=== PATIENT | male | born 1935 | race Caucasian/White ===

== ENCOUNTER → 2016-05-08 | Outpatient (CLI) | payer MEDICARE, OTHER | END | disposition home or self-care (01) | LOC: LAB 07:22 | DX: C34.11 Malignant neoplasm of upper lobe, right bronchus or lung (principal) | CPT/HCPCS: 36415; 82565; 84520 ==

== ENCOUNTER 2016-06-05 10:42 | Emergency (ER) | payer MEDICARE, OTHER ==
[~2016-06-05] VITALS: Ht 180.3 cm; Wt 86.2 kg
[2016-06-05] MEDS ORDERED: methylPREDNISolone SOD SUCC 125 MG/2 ML VL IV ONE (11:00)
[2016-06-05 11:21] LABS: Basophils # (auto) 0 uL; Basophils % (auto) 0.3 % (0.0-2.0); Eosinophils # (auto) 0.1 uL; Eosinophils % (auto) 1.6 % (0.0-7.0); Hematocrit 52.5 % (41.0-53.0); Hemoglobin 16.9 g/dL (13.5-17.5); Lymphocytes # (auto) 1.4 uL; Lymphocytes % (auto) 17.2 % (10.0-50.0); Mean Corpuscular Hemoglobin 31.1 pg (28.0-32.0); Mean Corpuscular Hgb Conc. 32.2 g/dL (32.0-36.0); Mean Corpuscular Volume 96.6 fL (80.0-100.0); Mean Platelet Volume 8.4 fL (7.4-10.4); Monocytes # (auto) 0.3 uL; Monocytes % (auto) 3.1 % (0.0-12.0); Neutrophils # (auto) 6.5 uL; Neutrophils % (auto) 77.8 % (37.0-80.0); Platelet Count (auto) 252 10^3/uL (140-450); Red Cell Distribution Width 13.7 % (11.6-16.0); White Blood Cell 8.3 10^3/uL (4.4-10.8)
[2016-06-05 11:46] LABS: Albumin 3.7 g/dL (3.4-5.0); BUN/Creatinine Ratio 17.1; Calcium 9.3 mg/dL (8.5-10.1); Potassium 3.4 mmol/L (3.5-5.1)
[2016-06-05 11:48] LABS: Bilirubin, Total 0.9 mg/dL (0.2-1.0); Total Protein 7.2 g/dL (6.4-8.2)
[2016-06-05 12:02] LABS: B-Type Natriuretic Peptide 108.14 pg/mL (0-100); Temperature: 23.1 C (20.0-25.0)
[2016-06-05] MEDS ORDERED: ASPirin 81 mg TAB PO ONE (13:30)
[2016-06-05] MEDS ORDERED: MORPHINE SULFATE 4 MG/ML SYRG IV ONE (13:30)
[2016-06-05] MEDS ORDERED: ONDANSETRON HCL 4 MG/2 ML VIAL IV ONE (13:30)
[2016-06-05] MEDS ORDERED: LORazepam 2MG/ML-1ML VIAL IV ONE (14:00)
[2016-06-05] MEDS ORDERED: NITROGLYCERIN 2% OINT 1GM PKG TD ONE (18:45)
[2016-06-06 00:36] LABS: Albumin 3.3 g/dL (3.4-5.0); BUN/Creatinine Ratio 18.3; Basophils # (auto) 0.1 uL; Basophils % (auto) 1.1 % (0.0-2.0); Calcium 8.8 mg/dL (8.5-10.1); Eosinophils # (auto) 0 uL; Hematocrit 47.2 % (41.0-53.0); Hemoglobin 15.2 g/dL (13.5-17.5); Lymphocytes # (auto) 0.6 uL; Lymphocytes % (auto) 5.1 % (10.0-50.0); Mean Corpuscular Hemoglobin 31.3 pg (28.0-32.0); Mean Corpuscular Hgb Conc. 32.3 g/dL (32.0-36.0); Mean Corpuscular Volume 97.1 fL (80.0-100.0); Mean Platelet Volume 8.4 fL (7.4-10.4); Monocytes # (auto) 0.3 uL; Monocytes % (auto) 2.5 % (0.0-12.0); Neutrophils # (auto) 10.2 uL; Neutrophils % (auto) 91.3 % (37.0-80.0); Platelet Count (auto) 210 10^3/uL (140-450); Potassium 4.8 mmol/L (3.5-5.1); Red Cell Distribution Width 12.7 % (11.6-16.0); SUSPECT VIEW TRANSMISSION; White Blood Cell 11.2 10^3/uL (4.4-10.8)
[2016-06-06 00:38] LABS: Bilirubin, Total 0.5 mg/dL (0.2-1.0); Total Protein 6.8 g/dL (6.4-8.2)
[2016-06-06 03:02] VITALS: BP 147/100
== END 2016-06-06 03:13 | disposition home or self-care (01) ==
LOC: EDBD 10:42 → ER 10:42
DX: J44.1 Chronic obstructive pulmonary disease with (acute) exacerbation (principal); I71.9 Aortic aneurysm of unspecified site, without rupture; I48.92 Unspecified atrial flutter; F17.210 Nicotine dependence, cigarettes, uncomplicated; R42 Dizziness and giddiness; I48.91 Unspecified atrial fibrillation; I25.810 Atherosclerosis of coronary artery bypass graft(s) without angina pectoris
CPT/HCPCS: 36415; 36600; 71010; 74176; 80053; 80320; 82805; 83605; 83735; 83880; 84484; 85025; 87040; 93005; 94761; 96374; 96375; 99285; J2060; J2270; J2405; J2930

== ENCOUNTER → 2016-06-11 | Outpatient (CLI) | payer MEDICARE, OTHER ==
[2016-06-11 12:45] LABS: Albumin 3.1 g/dL (3.4-5.0); Bilirubin, Total 0.6 mg/dL (0.2-1.0); Calcium 9.1 mg/dL (8.5-10.1); Total Protein 6.5 g/dL (6.4-8.2)
== END | disposition home or self-care (01) ==
LOC: LAB 11:14
PROVIDERS: ATTEND Internal Medicine Cardiovascular Disease
DX: I50.22 Chronic systolic (congestive) heart failure (principal); I35.9 Nonrheumatic aortic valve disorder, unspecified
CPT/HCPCS: 36415; 80053

== ENCOUNTER → 2016-07-10 | Outpatient (CLI) | payer MEDICARE, OTHER ==
[2016-07-10 15:10] LABS: Basophils # (auto) 0 uL; Basophils % (auto) 0.3 % (0.0-2.0); Eosinophils # (auto) 0.2 uL; Eosinophils % (auto) 2.5 % (0.0-7.0); Hematocrit 39.2 % (41.0-53.0); Hemoglobin 12.7 g/dL (13.5-17.5); Lymphocytes # (auto) 1.6 uL; Lymphocytes % (auto) 20.9 % (10.0-50.0); Mean Corpuscular Hemoglobin 31.2 pg (28.0-32.0); Mean Corpuscular Hgb Conc. 32.5 g/dL (32.0-36.0); Mean Platelet Volume 9.4 fL (7.4-10.4); Monocytes # (auto) 0.8 uL; Monocytes % (auto) 11.2 % (0.0-12.0); Neutrophils # (auto) 4.9 uL; Neutrophils % (auto) 65.1 % (37.0-80.0); Platelet Count (auto) 205 10^3/uL (140-450); Red Cell Distribution Width 14.8 % (11.6-16.0); White Blood Cell 7.5 10^3/uL (4.4-10.8)
[2016-07-10 15:12] LABS: Urine Bilirubin Negative (Negative); Urine Blood Negative /uL (Negative); Urine Color Yellow (Yellow); Urine Glucose Normal (Normal); Urine Hyaline Cast FEW /lpf (0 - 2); Urine Ketone Negative (Negative); Urine Mucus FEW (None Seen); Urine Nitrite Negative (Negative); Urine RBC 3 /hpf (0 - 3); Urine Urobilinogen Normal (Negative)
[2016-07-10 15:43] LABS: Albumin 3.9 g/dL (3.4-5.0); BUN/Creatinine Ratio 15.4; Bilirubin, Total 0.7 mg/dL (0.2-1.0); Calcium 9.8 mg/dL (8.5-10.1); Potassium 4.3 mmol/L (3.5-5.1); Total Protein 7.1 g/dL (6.4-8.2)
== END | disposition home or self-care (01) ==
LOC: LAB 13:55
DX: E78.5 Hyperlipidemia, unspecified (principal)
CPT/HCPCS: 36415; 80053; 80061; 81001; 84443; 85025; 85652

== ENCOUNTER → 2016-08-01 | Outpatient (CLI) | payer MEDICARE, OTHER ==
[2016-08-01 15:30] LABS: Temperature: 22.9 C (20.0-25.0)
== END | disposition home or self-care (01) ==
LOC: LAB 14:38
DX: I10 Essential (primary) hypertension (principal); D63.8 Anemia in other chronic diseases classified elsewhere
CPT/HCPCS: 82607; 82746; 83540; 83550

== ENCOUNTER → 2016-08-18 | Outpatient (CLI) | payer MEDICARE, OTHER ==
[2016-08-18 09:43] LABS: Basophils # (auto) 0 uL; Basophils % (auto) 0.2 % (0.0-2.0); Eosinophils # (auto) 0.2 uL; Eosinophils % (auto) 2.5 % (0.0-7.0); Hematocrit 39.5 % (41.0-53.0); Hemoglobin 12.9 g/dL (13.5-17.5); Lymphocytes # (auto) 1.1 uL; Lymphocytes % (auto) 16.6 % (10.0-50.0); Mean Corpuscular Hemoglobin 30.5 pg (28.0-32.0); Mean Corpuscular Hgb Conc. 32.5 g/dL (32.0-36.0); Mean Corpuscular Volume 93.8 fL (80.0-100.0); Mean Platelet Volume 9.1 fL (7.4-10.4); Monocytes # (auto) 0.8 uL; Monocytes % (auto) 13.2 % (0.0-12.0); Neutrophils # (auto) 4.3 uL; Neutrophils % (auto) 67.5 % (37.0-80.0); Platelet Count (auto) 186 10^3/uL (140-450); Red Cell Distribution Width 14.8 % (11.6-16.0); White Blood Cell 6.4 10^3/uL (4.4-10.8)
[2016-08-18 10:06] LABS: Albumin 3.6 g/dL (3.4-5.0); BUN/Creatinine Ratio 12.7; Bilirubin, Total 0.9 mg/dL (0.2-1.0); Potassium 4.6 mmol/L (3.5-5.1)
== END | disposition home or self-care (01) ==
LOC: LAB 09:00
PROVIDERS: ATTEND Internal Medicine
DX: C34.91 Malignant neoplasm of unspecified part of right bronchus or lung (principal)
CPT/HCPCS: 36415; 80053; 83615; 85025

== ENCOUNTER → 2016-10-21 | Outpatient (CLI) | payer MEDICARE, OTHER ==
[2016-10-21 09:16] LABS: Basophils # (auto) 0 uL; Basophils % (auto) 0.4 % (0.0-2.0); CONDITION Y; Eosinophils # (auto) 0.3 uL; Eosinophils % (auto) 4.8 % (0.0-7.0); Hematocrit 43.1 % (41.0-53.0); Hemoglobin 14.3 g/dL (13.5-17.5); Lymphocytes # (auto) 1.3 uL; Lymphocytes % (auto) 19.6 % (10.0-50.0); Mean Corpuscular Hemoglobin 29.6 pg (28.0-32.0); Mean Corpuscular Hgb Conc. 33.2 g/dL (32.0-36.0); Mean Corpuscular Volume 89.3 fL (80.0-100.0); Monocytes % (auto) 14.5 % (0.0-12.0); Neutrophils # (auto) 4.1 uL; Neutrophils % (auto) 60.7 % (37.0-80.0); Platelet Count (auto) 196 10^3/uL (140-450); Red Cell Distribution Width 16.1 % (11.6-16.0); White Blood Cell 6.8 10^3/uL (4.4-10.8)
[2016-10-21 09:22] LABS: Urine Bilirubin Negative (Negative); Urine Blood Negative /uL (Negative); Urine Color Yellow (Yellow); Urine Glucose Normal (Normal); Urine Ketone Negative (Negative); Urine Nitrite Negative (Negative); Urine RBC 2 /hpf (0 - 3); Urine pH 6.5 (5.0-8.0)
[2016-10-21 09:38] LABS: Albumin 3.8 g/dL (3.4-5.0); BUN/Creatinine Ratio 21.2; Bilirubin, Total 1.4 mg/dL (0.2-1.0); Calcium 10.1 mg/dL (8.5-10.1); Potassium 3.9 mmol/L (3.5-5.1); Total Protein 7.4 g/dL (6.4-8.2)
== END | disposition home or self-care (01) ==
LOC: LAB 08:58
PROVIDERS: ATTEND Internal Medicine
DX: I10 Essential (primary) hypertension (principal); D63.8 Anemia in other chronic diseases classified elsewhere
CPT/HCPCS: 36415; 80053; 80061; 81001; 84443; 85025

== ENCOUNTER → 2016-12-16 | Outpatient (CLI) | payer MEDICARE, OTHER ==
[2016-12-16 10:24] LABS: Basophils # (auto) 0 uL; Basophils % (auto) 0.2 % (0.0-2.0); CONDITION Y; Eosinophils # (auto) 0.2 uL; Hematocrit 40.5 % (41.0-53.0); Hemoglobin 13.2 g/dL (13.5-17.5); Lymphocytes # (auto) 1.2 uL; Lymphocytes % (auto) 20.9 % (10.0-50.0); Mean Corpuscular Hgb Conc. 32.7 g/dL (32.0-36.0); Mean Corpuscular Volume 94.8 fL (80.0-100.0); Mean Platelet Volume 8.6 fL (7.4-10.4); Monocytes # (auto) 0.7 uL; Monocytes % (auto) 12.2 % (0.0-12.0); Neutrophils # (auto) 3.5 uL; Neutrophils % (auto) 62.7 % (37.0-80.0); Platelet Count (auto) 170 10^3/uL (140-450); Red Cell Distribution Width 18.3 % (11.6-16.0); White Blood Cell 5.6 10^3/uL (4.4-10.8)
[2016-12-16 10:54] LABS: Albumin 3.7 g/dL (3.4-5.0); BUN/Creatinine Ratio 15.5; Calcium 9.7 mg/dL (8.5-10.1); Potassium 4.7 mmol/L (3.5-5.1)
[2016-12-16 10:57] LABS: Bilirubin, Total 0.8 mg/dL (0.2-1.0); Total Protein 7.2 g/dL (6.4-8.2)
== END | disposition home or self-care (01) ==
LOC: LAB 09:43
PROVIDERS: ATTEND Internal Medicine
DX: C34.91 Malignant neoplasm of unspecified part of right bronchus or lung (principal); J44.9 Chronic obstructive pulmonary disease, unspecified; I48.91 Unspecified atrial fibrillation; I25.10 Atherosclerotic heart disease of native coronary artery without angina pectoris
CPT/HCPCS: 36415; 80053; 83615; 85025

== ENCOUNTER → 2017-03-11 | Outpatient (CLI) | payer MEDICARE, OTHER ==
[2017-03-11 11:26] LABS: Basophils # (auto) 0 uL; Basophils % (auto) 0.4 % (0.0-2.0); Eosinophils # (auto) 0.2 uL; Eosinophils % (auto) 2.8 % (0.0-7.0); Hematocrit 40.6 % (41.0-53.0); Hemoglobin 13.8 g/dL (13.5-17.5); Lymphocytes # (auto) 1.3 uL; Lymphocytes % (auto) 22.7 % (10.0-50.0); Mean Corpuscular Volume 97.1 fL (80.0-100.0); Monocytes # (auto) 0.9 uL; Monocytes % (auto) 15.2 % (0.0-12.0); Neutrophils # (auto) 3.4 uL; Neutrophils % (auto) 58.9 % (37.0-80.0); Platelet Count (auto) 120 10^3/uL (140-450); Red Blood Cells 4.18 10^6/uL (4.5-5.90); Red Cell Distribution Width 14.4 % (11.8-14.3); White Blood Cell 5.7 10^3/uL (4.4-10.8)
[2017-03-11 12:15] LABS: Albumin 3.7 g/dL (3.4-5.0); BUN/Creatinine Ratio 16.3; Bilirubin, Total 1.1 mg/dL (0.2-1.0); Calcium 9.6 mg/dL (8.5-10.1); Potassium 3.7 mmol/L (3.5-5.1); Total Protein 6.8 g/dL (6.4-8.2)
== END | disposition home or self-care (01) ==
LOC: LAB 10:47
PROVIDERS: ATTEND Internal Medicine
DX: C34.91 Malignant neoplasm of unspecified part of right bronchus or lung (principal); J44.9 Chronic obstructive pulmonary disease, unspecified
CPT/HCPCS: 36415; 80053; 83615; 85025

== ENCOUNTER → 2017-04-23 | Outpatient (CLI) | payer MEDICARE, OTHER ==
[2017-04-23 10:19] LABS: Albumin 3.5 g/dL (3.4-5.0); BUN/Creatinine Ratio 15.2; Bilirubin, Total 2.2 mg/dL (0.2-1.0); Calcium 9.4 mg/dL (8.5-10.1); Potassium 4.2 mmol/L (3.5-5.1); Total Protein 6.8 g/dL (6.4-8.2)
== END | disposition home or self-care (01) ==
LOC: LAB 09:25
PROVIDERS: ATTEND Internal Medicine
DX: J44.9 Chronic obstructive pulmonary disease, unspecified (principal); E78.5 Hyperlipidemia, unspecified
CPT/HCPCS: 36415; 80053; 84439; 84443

== ENCOUNTER 2017-05-04 15:54 | Inpatient (IN) | payer MEDICARE, OTHER ==
[~2017-05-04] VITALS: Ht 185.4 cm; Wt 105.2 kg
[2017-05-04 18:12] LABS: Basophils # (auto) 0.1 uL; Basophils % (auto) 0.9 % (0.0-2.0); Eosinophils # (auto) 0 uL; Eosinophils % (auto) 0.1 % (0.0-7.0); Hematocrit 43.6 % (41.0-53.0); Hemoglobin 14.6 g/dL (13.5-17.5); Lymphocytes # (auto) 0.3 uL; Lymphocytes % (auto) 3.8 % (10.0-50.0); Mean Corpuscular Hemoglobin 33.3 pg (28.0-32.0); Mean Corpuscular Hgb Conc. 33.5 g/dL (32.0-36.0); Mean Corpuscular Volume 99.4 fL (80.0-100.0); Monocytes # (auto) 1.1 uL; Neutrophils # (auto) 7.6 uL; Neutrophils % (auto) 83.2 % (37.0-80.0); Nucleated Red Blood Cells % 0.1 %; Platelet Count (auto) 134 10^3/uL (140-450); Red Blood Cells 4.39 10^6/uL (4.5-5.90); Red Cell Distribution Width 17.4 % (11.8-14.3); White Blood Cell 9.2 10^3/uL (4.4-10.8)
[2017-05-04 18:28] LABS: Albumin 3.3 g/dL (3.4-5.0); BUN/Creatinine Ratio 22.1; Calcium 8.7 mg/dL (8.5-10.1); Potassium 3.4 mmol/L (3.5-5.1)
[2017-05-04 18:33] LABS: Bilirubin, Total 2.9 mg/dL (0.2-1.0); Total Protein 6.5 g/dL (6.4-8.2)
[2017-05-04] MEDS ORDERED: FUROSEMIDE 40 MG/4 ML VIAL IV ONE (20:45)
[2017-05-05] MEDS ORDERED: FUROSEMIDE INJECTION 10 ML ONE (00:32)
[2017-05-05] MEDS ORDERED: POTASSIUM CHL 20 Meq TABLET PO ONE (00:45)
[2017-05-05] MEDS ORDERED: MORPHINE SULFATE 4 MG/ML SYR/VIAL IV PRN (00:45)
[2017-05-05] MEDS ORDERED: ACETAMINOPHEN 500 MG TAB PO PRN (00:45)
[2017-05-05] MEDS ORDERED: FUROSEMIDE 20 MG/2 ML VIAL IV ONE (00:45)
[2017-05-05] MEDS ORDERED: NITROGLYCERIN 0.4 MG SL TAB SL PRN (00:45)
[2017-05-05] MEDS ORDERED: HYDROcodone-ACET 5/325MG TAB PO PRN (00:45)
[2017-05-05] MEDS ORDERED: ONDANSETRON HCL 4 MG/2 ML VIAL IV PRN (00:45)
[2017-05-05] MEDS: ENOXAPARIN SOD 80 MG/0.8ML SYRINGE SC SCH ×2 (01:24→12:53)
[2017-05-05] MEDS ORDERED: IPRATROPIUM BROM 0.5 MG/2.5ML INH SOL ONE (02:00)
[2017-05-05] MEDS ORDERED: ALBUTEROL SULF 2.5 MG/0.5ML(0.5%) NEB SOLN ONE (02:00)
[2017-05-05] MEDS ORDERED: methylPREDNISolone SOD SUCC 125 MG/2 ML VL IV ONE (02:15)
[2017-05-05] MEDS ORDERED: ALBUTEROL SULF 2.5 MG/0.5ML(0.5%) NEB SOLN NEB ONE (02:15)
[2017-05-05] MEDS ORDERED: IPRATROPIUM BROM 0.5 MG/2.5ML INH SOL NEB ONE (02:15)
[2017-05-05] MEDS: LORazepam 2MG/ML-1ML VIAL IV PRN (03:42)
[2017-05-05] MEDS ORDERED: DOXYCYCLINE HYC 100MG/250ML 250 ML IV SCH (05:30)
[2017-05-05 06:07] LABS: Basophils # (auto) 0 uL; Basophils % (auto) 0.1 % (0.0-2.0); Eosinophils # (auto) 0 uL; Hematocrit 43.9 % (41.0-53.0); Hemoglobin 14.8 g/dL (13.5-17.5); Lymphocytes # (auto) 0.2 uL; Lymphocytes % (auto) 2.5 % (10.0-50.0); Mean Corpuscular Hemoglobin 33.3 pg (28.0-32.0); Mean Corpuscular Hgb Conc. 33.6 g/dL (32.0-36.0); Mean Corpuscular Volume 99.2 fL (80.0-100.0); Monocytes # (auto) 0.7 uL; Monocytes % (auto) 6.9 % (0.0-12.0); Neutrophils # (auto) 8.5 uL; Neutrophils % (auto) 90.5 % (37.0-80.0); Nucleated Red Blood Cells % 0.1 %; Platelet Count (auto) 140 10^3/uL (140-450); Red Blood Cells 4.43 10^6/uL (4.5-5.90); Red Cell Distribution Width 17.6 % (11.8-14.3); White Blood Cell 9.4 10^3/uL (4.4-10.8)
[2017-05-05] MEDS: IPRATROPIUM BROM 0.5 MG/2.5ML INH SOL NEB SCH ×5 (06:14→18:27)
[2017-05-05] MEDS: ALBUTEROL SULF 2.5 MG/0.5ML(0.5%) NEB SOLN NEB SCH ×3 (06:14→18:28)
[2017-05-05 06:23] LABS: Calcium 8.8 mg/dL (8.5-10.1)
[2017-05-05 06:25] LABS: BUN/Creatinine Ratio 21.8
[2017-05-05 08:33] VITALS: BP 116/73
[2017-05-05] MEDS: POTASSIUM CHL 20 Meq TABLET PO SCH (09:33)
[2017-05-05] MEDS: CARVEDILOL 3.125 MG TAB PO SCH ×2 (09:33→21:47)
[2017-05-05] MEDS: FUROSEMIDE 40 MG/4 ML VIAL IV SCH (09:33)
[2017-05-05] MEDS: ASPirin 81 mg TAB PO SCH (09:33)
[2017-05-05] MEDS: LISINOPRIL 5 MG TAB PO SCH (09:34)
[2017-05-05] MEDS ORDERED: ALBUTEROL SULF 2.5 MG/0.5ML(0.5%) NEB SOLN NEB PRN (10:30)
[2017-05-05] MEDS ORDERED: OSELTAMIVIR 75 MG CAP PO ONE (10:30)
[2017-05-05] MEDS ORDERED: LEVOFLOXACIN 500MG 100 ML IV ONE (10:45)
[2017-05-05] MEDS ORDERED: methylPREDNISolone SOD SUCC 40 MG/ML VL IV ONE (11:30)
[2017-05-05 12:10] LABS: Urine Bacteria FEW /hpf (None Seen); Urine Blood 2+ /uL (Negative); Urine Mucus FEW (None Seen); Urine Specific Gravity 1.011 (1.001-1.035); Urine WBC 9 /hpf (0 - 3)
[2017-05-05] MEDS: methylPREDNISolone SOD SUCC 40 MG/ML VL IV SCH ×2 (12:11→18:10)
[2017-05-05] MEDS: CLINDAMYCIN 600MG IV 50 ML IV SCH ×2 (14:09→21:46)
[2017-05-05 21:30] VITALS: BP 113/75
[2017-05-05] MEDS: ATORVASTATIN 20 MG TAB PO SCH (21:47)
[2017-05-05] MEDS ORDERED: OSELTAMIVIR 75 MG CAP PO SCH (22:00)
[2017-05-05 22:57] VITALS: BP 113/75
[2017-05-06] MEDS: methylPREDNISolone SOD SUCC 40 MG/ML VL IV SCH ×4 (00:10→17:02)
[2017-05-06] MEDS: ALBUTEROL SULF 2.5 MG/0.5ML(0.5%) NEB SOLN NEB SCH ×5 (00:28→20:03)
[2017-05-06] MEDS: IPRATROPIUM BROM 0.5 MG/2.5ML INH SOL NEB SCH ×7 (00:28→20:02)
[2017-05-06] MEDS: ENOXAPARIN SOD 80 MG/0.8ML SYRINGE SC SCH (01:29)
[2017-05-06 05:53] VITALS: BP 99/65
[2017-05-06] MEDS: ENOXAPARIN SOD 100 MG/1 ML SYRINGE SC SCH ×2 (06:00→17:02)
[2017-05-06] MEDS: CLINDAMYCIN 600MG IV 50 ML IV SCH ×3 (06:09→22:18)
[2017-05-06 08:00] VITALS: BP 95/55
[2017-05-06 08:09] VITALS: BP 84/56
[2017-05-06] MEDS: LISINOPRIL 5 MG TAB PO SCH (09:43)
[2017-05-06] MEDS: ASPirin 81 mg TAB PO SCH (09:44)
[2017-05-06] MEDS: CARVEDILOL 3.125 MG TAB PO SCH ×2 (09:44→22:00)
[2017-05-06] MEDS: FUROSEMIDE 40 MG/4 ML VIAL IV SCH (09:44)
[2017-05-06] MEDS: LEVOFLOXACIN 500MG 100 ML IV SCH (09:44)
[2017-05-06] MEDS: POTASSIUM CHL 20 Meq TABLET PO SCH (09:48)
[2017-05-06] MEDS ORDERED: PANTOPRAZOLE 40 MG TAB PO ONE (14:15)
[2017-05-06] MEDS ORDERED: ALUM & MAG HYDROX-SIMETH LIQ(MAALOX) 30 ML PO ONE (14:15)
[2017-05-06 17:25] VITALS: BP 90/61
[2017-05-06 20:00] VITALS: BP 97/67
[2017-05-06] MEDS: ATORVASTATIN 20 MG TAB PO SCH (22:18)
[2017-05-07] MEDS: methylPREDNISolone SOD SUCC 40 MG/ML VL IV SCH ×3 (00:01→12:50)
[2017-05-07 00:47] VITALS: BP 97/67
[2017-05-07] MEDS: IPRATROPIUM BROM 0.5 MG/2.5ML INH SOL NEB SCH ×4 (00:47→12:10)
[2017-05-07] MEDS: ALBUTEROL SULF 2.5 MG/0.5ML(0.5%) NEB SOLN NEB SCH ×2 (00:48→12:09)
[2017-05-07 05:51] VITALS: BP 98/62
[2017-05-07] MEDS: CLINDAMYCIN 600MG IV 50 ML IV SCH ×2 (06:02→14:00)
[2017-05-07] MEDS: ENOXAPARIN SOD 100 MG/1 ML SYRINGE SC SCH (06:02)
[2017-05-07 08:00] VITALS: BP 92/60
[2017-05-07 08:34] VITALS: BP 92/60
[2017-05-07] MEDS ORDERED: PANTOPRAZOLE 40 MG TAB PO SCH (10:00)
[2017-05-07] MEDS: CARVEDILOL 3.125 MG TAB PO SCH (10:00)
[2017-05-07] MEDS: LISINOPRIL 5 MG TAB PO SCH (10:00)
[2017-05-07] MEDS: ASPirin 81 mg TAB PO SCH (10:14)
[2017-05-07] MEDS: FUROSEMIDE 40 MG/4 ML VIAL IV SCH (10:14)
[2017-05-07] MEDS: POTASSIUM CHL 20 Meq TABLET PO SCH (10:21)
[2017-05-07] MEDS: LORazepam 2MG/ML-1ML VIAL IV PRN (10:21)
[2017-05-07] MEDS: LEVOFLOXACIN 500MG 100 ML IV SCH (10:21)
[2017-05-07 12:38] VITALS: BP 108/54
[2017-05-07 13:56] VITALS: BP 108/54
[2017-05-07] MEDS ORDERED: CLINDAMYCIN HCL 150 MG CAP PO SCH (22:00)
[2017-05-08] MEDS ORDERED: LEVOFLOXACIN 500 MG TAB PO SCH (10:00)
== END 2017-05-07 16:09 | disposition home or self-care (01) | DRG 291 ==
LOC: ER 15:54 → EDBD 15:54 → EDUNIT# 15:54 → EDSEX 15:54 → TELE 15:55 → TELE-WESTW 05-05 20:57
PROVIDERS: ADMIT Nurse Practitioner Family; ATTEND Internal Medicine
DX: I13.0 Hypertensive heart and chronic kidney disease with heart failure and stage 1 through stage 4 chronic kidney disease, or unspecified chronic kidney disease (principal); J18.9 Pneumonia, unspecified organism; J96.00 Acute respiratory failure, unspecified whether with hypoxia or hypercapnia; N17.9 Acute kidney failure, unspecified; J44.0 Chronic obstructive pulmonary disease with (acute) lower respiratory infection; I35.0 Nonrheumatic aortic (valve) stenosis; I48.91 Unspecified atrial fibrillation; Z95.1 Presence of aortocoronary bypass graft; I50.33 Acute on chronic diastolic (congestive) heart failure; J44.1 Chronic obstructive pulmonary disease with (acute) exacerbation; I25.5 Ischemic cardiomyopathy; I25.10 Atherosclerotic heart disease of native coronary artery without angina pectoris; K11.8 Other diseases of salivary glands; F10.20 Alcohol dependence, uncomplicated; N18.2 Chronic kidney disease, stage 2 (mild); E78.5 Hyperlipidemia, unspecified; E87.6 Hypokalemia; F17.210 Nicotine dependence, cigarettes, uncomplicated; I25.2 Old myocardial infarction; Z82.49 Family history of ischemic heart disease and other diseases of the circulatory system; Z85.118 Personal history of other malignant neoplasm of bronchus and lung; Z86.718 Personal history of other venous thrombosis and embolism; Z79.899 Other long term (current) drug therapy; Z79.82 Long term (current) use of aspirin
CPT/HCPCS: 36415; 36600; 51702; 71045; 71250; 80048; 80053; 81001; 82805; 83880; 84484; 85025; 87040; 87070; 87205; 87400; 93005; 94640; 94644; 96374; J1956; J3490

== ENCOUNTER → 2017-05-29 | Outpatient (CLI) | payer MEDICARE ==
[2017-05-29 11:47] LABS: BUN/Creatinine Ratio 16.7; Calcium 9.6 mg/dL (8.5-10.1); Potassium 3.8 mmol/L (3.5-5.1)
== END | disposition home or self-care (01) ==
LOC: LAB 10:45
PROVIDERS: ATTEND Internal Medicine
DX: I11.0 Hypertensive heart disease with heart failure (principal); I50.9 Heart failure, unspecified
CPT/HCPCS: 36415; 80048; 83880

== ENCOUNTER → 2017-07-28 | Outpatient (CLI) | payer MEDICARE, OTHER ==
[2017-07-28 11:05] LABS: Hematocrit 38.2 % (41.0-53.0); Hemoglobin 13.3 g/dL (13.5-17.5); Mean Corpuscular Hemoglobin 33.4 pg (28.0-32.0); Mean Corpuscular Hgb Conc. 34.7 g/dL (32.0-36.0); Mean Corpuscular Volume 96.5 fL (80.0-100.0); Platelet Count (auto) 197 10^3/uL (140-450); Red Blood Cells 3.96 10^6/uL (4.5-5.90); Red Cell Distribution Width 15.2 % (11.8-14.3)
[2017-07-28 11:16] LABS: Band Neutrophils % (manual) 0; Basophils % (manual) 0 (0.0-2.0); Metamyelocytes % 0; Myelocytes % 0; Promyelocytes % 0
[2017-07-28 11:17] LABS: Blast Cells 0; Reactive Lymphocytes 0
[2017-07-28 11:25] LABS: BUN/Creatinine Ratio 16.5; Calcium 9.3 mg/dL (8.5-10.1); Potassium 5.2 mmol/L (3.5-5.1)
[2017-07-28 13:33] LABS: Eosinophils % (manual) 3 (0-7); Lymphocytes % (manual) 19 (10.0-50.0); Monocytes % (manual) 18 (0-12)
== END | disposition home or self-care (01) ==
LOC: LAB 10:44
PROVIDERS: ATTEND Internal Medicine Cardiovascular Disease
DX: I10 Essential (primary) hypertension (principal); I35.0 Nonrheumatic aortic (valve) stenosis; J44.9 Chronic obstructive pulmonary disease, unspecified; Z45.09 Encounter for adjustment and management of other cardiac device
CPT/HCPCS: 36415; 80048; 80061; 85007; 85027

== ENCOUNTER → 2017-08-13 | Outpatient (CLI) | payer MEDICARE, OTHER ==
[2017-08-13 10:37] LABS: Urine Bacteria NONE SEEN /hpf (None Seen); Urine Blood Negative /uL (Negative); Urine Specific Gravity 1.015 (1.001-1.035); Urine WBC 7 /hpf (0 - 3)
[2017-08-13 10:45] LABS: Basophils # (auto) 0 uL; Basophils % (auto) 0.7 % (0.0-2.0); Eosinophils # (auto) 0.3 uL; Hematocrit 37.9 % (41.0-53.0); Hemoglobin 12.7 g/dL (13.5-17.5); Lymphocytes % (auto) 15.5 % (10.0-50.0); Mean Corpuscular Hgb Conc. 33.6 g/dL (32.0-36.0); Monocytes # (auto) 0.9 uL; Monocytes % (auto) 13.3 % (0.0-12.0); Neutrophils # (auto) 4.4 uL; Neutrophils % (auto) 66.5 % (37.0-80.0); Nucleated Red Blood Cells % 0.1 %; Platelet Count (auto) 179 10^3/uL (140-450); Red Blood Cells 3.86 10^6/uL (4.5-5.90); White Blood Cell 6.7 10^3/uL (4.4-10.8)
[2017-08-13 10:47] LABS: INR 1.04 (0.9-1.15); Partial Thromboplastin Time 30.7 sec (22.64-33.71); Prothrombin Time 11.3 sec (9.37-12.3)
[2017-08-13 12:38] LABS: Albumin 3.5 g/dL (3.4-5.0); BUN/Creatinine Ratio 13.6; Bilirubin, Total 1.1 mg/dL (0.2-1.0); Potassium 4.9 mmol/L (3.5-5.1); Total Protein 7.7 g/dL (6.4-8.2)
== END | disposition home or self-care (01) ==
LOC: LAB 10:16
PROVIDERS: ATTEND Specialist
DX: H25.11 Age-related nuclear cataract, right eye (principal); F17.200 Nicotine dependence, unspecified, uncomplicated; I12.9 Hypertensive chronic kidney disease with stage 1 through stage 4 chronic kidney disease, or unspecified chronic kidney disease; N18.2 Chronic kidney disease, stage 2 (mild); I48.91 Unspecified atrial fibrillation; Z79.82 Long term (current) use of aspirin; Z79.899 Other long term (current) drug therapy; Z79.01 Long term (current) use of anticoagulants
CPT/HCPCS: 36415; 80053; 81001; 85025; 85610; 85730

== ENCOUNTER → 2017-12-09 | Outpatient (CLI) | payer MEDICARE, OTHER | END | disposition home or self-care (01) | LOC: XYW 10:11 | PROVIDERS: ATTEND Internal Medicine Cardiovascular Disease | DX: I35.0 Nonrheumatic aortic (valve) stenosis (principal); I12.9 Hypertensive chronic kidney disease with stage 1 through stage 4 chronic kidney disease, or unspecified chronic kidney disease; N18.2 Chronic kidney disease, stage 2 (mild); Z79.01 Long term (current) use of anticoagulants; Z79.899 Other long term (current) drug therapy; Z79.82 Long term (current) use of aspirin | CPT/HCPCS: 93306 ==